=== PATIENT | female | born 1940 | race Caucasian/White ===

== ENCOUNTER 2022-03-29 17:51 | Inpatient (IN) ==
--- NOTE | 2022-03-29 17:59 | ED Triage Note ---
Date of Service March 29, 2022 History of Present Illness This patient was briefly evaluated while in triage. An abbreviated physical exam was performed. This patient is a 81-year-old Female with past medical history of hypertension, hyperlipidemia, DM who presents to the ED for evaluation of pain in left lower back and tailbone, radiates into the left hip, started 2 days ago suddenly after standing up from sitting in chair. Pain is getting worse, radiates around to the front of the abdomen. History of back surgery to remove a cyst. Having trouble walking because of pain. No numbness, tingling, weakness, bowel or bladder problems. Took Tylenol for the pain with some relief. Denies fevers, but has had some intermittent chills. No vomiting. Physical Exam CONSTITUTIONAL: No acute distress. Well appearing. RESPIRATORY: Clear to auscultation bilaterally. Equal expansion bilaterally. CARDIOVASCULAR: Regular rate and rhythm with no murmurs, rubs or gallops. Normal peripheral perfusion. GASTROINTESTINAL: Soft, nondistended, tender to palpation in the left flank and lower abdomen. MUSCULOSKELETAL: No midline tenderness to palpation over the lumbar spine or sacrum. NEUROLOGIC: Alert and oriented X 4 with normal affect. Initial orders for labs and / or imaging were placed and patient was placed in the waiting area until a bed is available. Please see further documentation for the full ED course. MDM / Impression Impression Impression: Intractable low back pain, Left buttock pain, Ambulatory dysfunction
[2022-03-29] MEDS ORDERED: ACETAMINOPHEN 500 MG TAB PO STA (18:01)
[2022-03-29 19:19] LABS: Basophils # (auto) 0.06 K/uL (0-0.2); Basophils % (auto) 0.5 %; Eosinophils # (auto) 0.13 K/uL (0-0.50); Eosinophils % (auto) 1.1 %; Hematocrit (blood only) 41.8 % (37.0-47.0); Hemoglobin 13.9 g/dl (12.0-16.0); Immature Granulocytes # (auto) 0.06 K/uL (0.01-0.20); Immature Granulocytes % (auto) 0.5 %; Lymphocytes # (auto) 1.53 K/uL (1.2-3.4); Lymphocytes % (auto) 12.7 %; Mean Corpuscular Hemoglobin 29.5 pg (25.0-34.0); Mean Corpuscular Hgb Conc 33.3 g/dL (32.0-36.0); Mean Corpuscular Volume 88.7 fL (80.0-100.0); Mean Platelet Volume 11.9 fL (9.4-12.4); Monocytes # (auto) 1.26 K/uL (0.11-0.59); Monocytes % (auto) 10.4 %; Neutrophils # (auto) 9.03 K/uL (1.40-6.50); Neutrophils % (auto) 74.8 %; Platelet Count 211 K/uL (130-400); RDW Coefficient of Variation 13.2 % (11.5-14.5); RDW Standard Deviation 43.1 fL (36.4-46.3); Red Blood Count 4.71 M/uL (4.20-5.40); White Blood Count 12.07 K/ul (4.8-10.8)
[2022-03-29] MEDS ORDERED: HYDROmorphone INJ 0.5 MG/0.5 ML SYR IV STA ×2 (19:33→21:17)
[2022-03-29] MEDS ORDERED: ONDANSETRON INJ 2 MG/ML 2 ML VIAL IV STA ×2 (19:33→21:17)
[2022-03-29] MEDS ORDERED: SODIUM CHLORIDE 0.9% 1000ML 500 ML IV ONE (19:33)
--- NOTE | 2022-03-29 19:35 | Emergency Department Note ---
Impression & Plan Intractable low back pain, Left buttock pain, Ambulatory dysfunction ED Provider Note Name: STEPHON COPE Age: 81 Sex: F Arrives Via: Walk-In Informant: Patient, Family ED Provider: Yoni Delgadillo MD Chief Complaint: Buttock pain Impression: As per impressions above Medical Decision Makin-year-old female with a history of diabetes, hypertension, hypothyroid, fluid overload, dyslipidemia arrives for evaluation of acute worsening of left lower back pain radiating into buttock for the last 48 hours. It is to the point where she can barely even ambulate. 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 On examination she does have some what appears to be a lipoma in the left buttock but it is small nontender nonfluctuant. Does not seem consistent with the amount of pain she is having or where the pain is at. She has no neurologic deficits and she has good pulses in the leg with good cap refill. Does not appear to be an arterial issue. Given the amount of pain she is in I did think it was reasonable to continue with getting the CT had already been ordered of the abdomen pelvis and lumbar spine. I did add in a hip just given that the pain it started after she had been sitting up out of a chair. Fortunately this imaging is unremarkable. Her labs are essentially unremarkable. I do not find any evidence of infectious is on exam or other concerning signs or symptoms. Patient is requiring several rounds of IV narcotics. Is also getting quite nauseous and vomiting though. I do not suspect she will do well at home given she can barely ambulate due to the pain and that the pain medications make her so nauseous. She was given some IV Reglan for management of the nausea. After discussion with family and much to the dismay of the patient I do think it is reasonable to bring her in to the hospital. She is grudgingly agreeable to it based on the fact of the pain she has been having. Hospitalist was consulted for further management. Prior Medical Record and Triage/Nursing Notes reviewed by Me External records reviewed included PDMP search which confirmed that she had tolerated Oxy IR previously or at least been prescribed Differentials:Sciatica, fracture, abscess, cellulitis, diverticulitis, intra- abdominal infection otherwise, retroperitoneal hemorrhage, renal colic, shingles amongst many other pathologies considered Vital Signs: reviewed and remarkable for no significant abnormalities Interventions: Dilaudid 0.25 mg IV, Dilaudid 0.5 mg IV, Zofran 4 mg IV x2, Reglan 5 mg IV, normal saline bolus 1 L IV Labs:Reviewed and remarkable for no significant abnormalities on review of CBC, CMP, UA, lipase Imaging:CT imaging of the abdomen, pelvis, lumbar, hip reveals no acute findings as per radiologist CT chart for full read. Consults:Reviewed with Dr. Ghosh of the [facility] service who will bring her in for further management. Plan: Disposition:Hospitalization. Condition: Good History of Present Illness:81-year-old female arrives for evaluation of left b uttock pain. Patient with a history of lipomas in that area with previous surgery removal and then them returning. Notes no significant issues with them though. Over the last 2 days though she has had severe left lower back and left pain. Worse with any movement. Better with mild rest. She cannot lay flat due to the amount of pain she is having. She states it started after she was getting out of bed. Taking Tylenol without improvement. States she has been crying for the last 2 days due to the amount of pain. Family notes she is not eating due to amount of pain. This never happened before. She is unable to ambulate. No fall, trauma, injuries. No similar pain to this in the past. No history of hip injuries or fractures. Past History:See Below Home Medications:See Below Allergies:NKDA Vitals:Blood Pressure: 152/77, Pulse 90, RR 20, T 36.4C, O2 97% on RA Physical Exam: GENERAL: Patient is very uncomfortable appearing and in moderate distress. Crying in pain EYES: No scleral icterus, unremarkable pupils. ENT: Mucous membranes moist, no nasal congestion. NECK: No masses appreciated, nomeningismus, trachea is midline. RESPIRATORY: No dyspnea. Clear to auscultation and equal bilaterally. No wheeze, no rhonchi. CARDIOVASCULAR: Regular rate and rhythm.No murmurs, rubs, gallops appreciated. GASTROINTESTINAL: Abdomen soft, non-tender, no peritonitis.Bowel sounds positive.No masses appreciated. BACK: Pain localized to lower left back and upper left buttock but without any TTP. There are several nontender lipomas noted. EXTREMITIES: Normal motion all extremities, no cyanosis, no edema. NEUROLOGIC: Alert and oriented, No focal neuro deficits SKIN: No rash, no jaundice, no diaphoresis. PSYCH: Appropriate GCS: 15 ED Course: Times/Reassessments: Patient is feeling a bit better but she is still quite uncomfortable and now she has developed nausea and dry heaves. Yoni Delgadillo MD Past Med/Surg History Medical History (Updated 03/30/22 @ 01:44 by Yoni Delgadillo MD) Diverticulitis Social History (Updated 07/02/18 @ 07:33 by Shanice Ferreira) Smoking Status: Never smoker marital status: Current Living Situation: Spouse Feels Safe at Home: Yes Allergies Allergies Allergy/AdvReac Type Severity Reaction Status Date / Time No Known Allergies Allergy Mild Verified 03/29/22 20:15 Home Meds Home Medications Medication Instructions Recorded Confirmed furosemide 20 mg tablet 20 mg PO DAILY 07/02/18 03/29/22 levothyroxine 88 mcg tablet 88 mcg PO DAILY 07/02/18 03/29/22 metoprolol succinate 25 mg 25 mg PO DAILY 07/02/18 03/29/22 tablet,extended release 24 hr omeprazole 20 mg capsule,delayed 20 mg PO DAILY PRN Acid Reflux 07/02/18 03/29/22 release Aspirin Low-Strength 81 mg PO DAILY 03/29/22 03/29/22 atorvastatin 10 mg tablet 10 mg PO DAILY 03/29/22 03/29/22 lisinopril 20 mg tablet 20 mg PO DAILY 03/29/22 03/29/22 metformin 500 mg tablet,extended 500 mg PO DAILY 03/29/22 03/29/22 release 24 hr omega [id number] oil 1,000 mg 1 cap PO DAILY 03/29/22 03/29/22 (120 mg-180 mg) capsule (Fish Oil) vitamin E 268 mg (400 unit) capsule 268 mg PO DAILY 03/29/22 03/29/22 Vitamin D3 1,000 units PO DAILY 03/30/22 03/30/22 Results & Data (ED) Vital Signs Vital Signs - 24 hr 03/29/22 17:53 03/29/22 21:00 03/29/22 23:00 Temperature 36.4 C L Temperature Source Temporal Artery Scan Pulse Rate 90 Pulse Rate [Apical] 64 66 Pulse Rhythm Regular Pulse Rhythm [Apical] Regular Regular Pulse Strength Normal Pulse Strength [Apical] Normal Normal Respiratory Rate 20 18 18 Respiratory Effort / Characteristics Non-Labored Spontaneous Non-Labored Non-Labored Respiratory Depth Normal Normal Normal Respiratory Pattern Regular Regular Regular Blood Pressure 152/77 H Blood Pressure [Right Arm] 149/70 H 150/68 H Blood Pressure Mean 102 Blood Pressure Mean [Right Arm] 96 95 Blood Pressure Position Sitting Blood Pressure Position [Right Arm] Lying Lying Pulse Oximetry 97 98 97 Oxygen Delivery Method Room Air Room Air Room Air Sepsis Recent Fever Within 48 Hours No Sepsis New/Unexplained Change in Mental Status N/A Sepsis Action Taken by Nursing No Action Required Laboratory Data 03/29/22 19:05 03/29/22 19:05 Lab Results 03/29/22 03/29/22 03/29/22 Range/Units 19: 19: 22:00 WBC 12.07 H (4.8-10.8) K/ul RBC 4.71 (4.20-5.40) M/uL Hgb 13.9 (12.0-16.0) g/dl Hct 41.8 (37.0-47.0) % MCV 88.7 (80.0-100.0) fL MCH 29.5 (25.0-34.0) pg MCHC 33.3 (32.0-36.0) g/dL RDW Std Deviation 43.1 (36.4-46.3) fL RDW Coeff of Ramses 13.2 (11.5-14.5) % Plt Count 211 (130-400) K/uL MPV 11.9 (9.4-12.4) fL Immature Gran % (Auto) 0.5 % Neut % (Auto) 74.8 % Lymph % (Auto) 12.7 % [place] % (Auto) 10.4 % Eos % (Auto) 1.1 % Baso % (Auto) 0.5 % Neut # (Auto) 9.03 H (1.40-6.50) K/uL Lymph # (Auto) 1.53 (1.2-3.4) K/uL [place] # (Auto) 1.26 H (0.11-0.59) K/uL Eos # (Auto) 0.13 (0-0.50) K/uL Baso # (Auto) 0.06 (0-0.2) K/uL Immature Gran # (Auto) 0.06 (0.01-0.20) K/uL Sodium 137 (136-145) mmol/L Potassium 4.3 (3.5-5.1) mmol/L Chloride 102 (98-107) mmol/L Carbon Dioxide 26 (21-32) mmol/L Anion Gap 9 (3-11) BUN 14 (6-23) mg/dl Creatinine 0.78 (0.6-1.2) mg/dl Est Cr Clr Drug Dosing Not Reportable Est GFR ( Amer) 83.2 ml/min Est GFR (Non-Af Amer) 71.8 ml/min BUN/Creatinine Ratio 17.9 (10-20) Glucose 237 H (70-99(Fasting)) mg/dl Calcium 9.9 (8.5-10.1) mg/dl Total Bilirubin 0.5 (0.2-1.0) mg/dl AST 14 (13-39) U/L ALT 21 (7-52) U/L Alkaline Phosphatase 62 (34-104) U/L Total Protein 7.7 (6.0-8.3) gm/dl Albumin 4.4 (3.4-5.0) gm/dl Globulin 3.3 (2.5-4.0) gm/dl Albumin/Globulin Ratio 1.3 (0.9-2) Lipase 26 (11-82) U/L Urine Color Yellow Urine Appearance Clear (Clear) Urine pH 5.0 (4.5-7.5) Ur Specific [place] > 1.045 H (1.000-1.030) Urine Protein Negative (Negative) Urine Glucose (UA) Negative (Negative) Urine Ketones Negative (Negative) Urine Blood Negative (Negative) Urine Nitrite Negative (Negative) Urine Bilirubin Negative (Negative) Urine Urobilinogen Negative (Negative) Ur Leukocyte Esterase Negative (Negative) SARS-CoV-2, RNA, NAAT (NEGATIVE) 03/29/22 Range/Units 22:35 WBC (4.8-10.8) K/ul RBC (4.20-5.40) M/uL Hgb (12.0-16.0) g/dl Hct (37.0-47.0) % MCV (80.0-100.0) fL MCH (25.0-34.0) pg MCHC (32.0-36.0) g/dL RDW Std Deviation (36.4-46.3) fL RDW Coeff of Ramses (11.5-14.5) % Plt Count (130-400) K/uL MPV (9.4-12.4) fL Immature Gran % (Auto) % Neut % (Auto) % Lymph % (Auto) % [place] % (Auto) % Eos % (Auto) % Baso % (Auto) % Neut # (Auto) (1.40-6.50) K/uL Lymph # (Auto) (1.2-3.4) K/uL [place] # (Auto) (0.11-0.59) K/uL Eos # (Auto) (0-0.50) K/uL Baso # (Auto) (0-0.2) K/uL Immature Gran # (Auto) (0.01-0.20) K/uL Sodium (136-145) mmol/L Potassium (3.5-5.1) mmol/L Chloride (98-107) mmol/L Carbon Dioxide (21-32) mmol/L Anion Gap (3-11) BUN (6-23) mg/dl Creatinine (0.6-1.2) mg/dl Est Cr Clr Drug Dosing Est GFR ( Amer) ml/min Est GFR (Non-Af Amer) ml/min BUN/Creatinine Ratio (10-20) Glucose (70-99(Fasting)) mg/dl Calcium (8.5-10.1) mg/dl Total Bilirubin (0.2-1.0) mg/dl AST (13-39) U/L ALT (7-52) U/L Alkaline Phosphatase (34-104) U/L Total Protein (6.0-8.3) gm/dl Albumin (3.4-5.0) gm/dl Globulin (2.5-4.0) gm/dl Albumin/Globulin Ratio (0.9-2) Lipase (11-82) U/L Urine Color Urine Appearance (Clear) Urine pH (4.5-7.5) Ur Specific [place] (1.000-1.030) Urine Protein (Negative) Urine Glucose (UA) (Negative) Urine Ketones (Negative) Urine Blood (Negative) Urine Nitrite (Negative) Urine Bilirubin (Negative) Urine Urobilinogen (Negative) Ur Leukocyte Esterase (Negative) SARS-CoV-2, RNA, NAAT NEGATIVE (NEGATIVE) Administered Medications Discontinued Medications Acetaminophen (Acetaminophen 500 Mg Tab) 1,000 mg PO NOW STA Stop: 03/29/22 18:02 Last Admin: 03/29/22 19:06 Dose: 1,000 mg Documented By: SKYE Hydromorphone HCl (Hydromorphone Inj 0.5 Mg/0.5 Ml Syr) 0.5 mg IV NOW STA Stop: 03/29/22 19:34 Last Admin: 03/29/22 19:52 Dose: 0.5 mg Documented By: RUFINO Hydromorphone HCl (Hydromorphone Inj 0.5 Mg/0.5 Ml Syr) 0.25 mg IV NOW STA Stop: 03/29/22 21:18 Last Admin: 03/29/22 21:22 Dose: 0.25 mg Documented By: RUFINO Sodium Chloride (Nss 1000ml) 500 mls @ 999 mls/hr IV .Q31M ONE Stop: 03/29/22 20:03 Last Infusion: 03/29/22 20:23 Dose: 0 mls/hr Documented By: Admin: 03/29/22 19:52 Dose: 999 mls/hr Documented By: RUFINO Ioversol (Optiray 350 100ml) 85 ml IV ONCE ONE Stop: 03/29/22 20:20 Last Admin: 03/29/22 20:19 Dose: 85 ml Documented By: SHANT Metoclopramide HCl (Metoclopramide Hcl Inj 5 Mg/Ml 2 Ml Vial) 5 mg IV ONE ONE Stop: 03/29/22 22:41 Last Admin: 03/29/22 22:46 Dose: 5 mg Documented By: RUFINO Ondansetron HCl (Ondansetron Inj 2 Mg/Ml 2 Ml Vial) 4 mg IV NOW STA Stop: 03/29/22 19:34 Last Admin: 03/29/22 19:52 Dose: 4 mg Documented By: RUFINO Ondansetron HCl (Ondansetron Inj 2 Mg/Ml 2 Ml Vial) 4 mg IV NOW STA Stop: 03/29/22 21:18 Last Admin: 03/29/22 21:22 Dose: 4 mg Documented By: RUFINO Imaging Data Radiologist's Impression: Abdomen/Pelvis CT 03/29/22 18:01 CT SCAN OF THE ABDOMEN AND PELVIS WITH IV CONTRAST; CT SCAN OF THE LUMBAR SPINE WITH IV CONTRAST; CT SCAN OF THE LEFT HIP WITHOUT IV CONTRAST CLINICAL HISTORY: Left flank pain. Low back pain. Left hip pain. COMPARISON STUDY: Abdominal CT dated 07/02/2018. TECHNIQUE: Unenhanced CT scan of the left hip is lumbar bony pelvis the femoral shaft. Subsequently, following the IV administration of 85 cc of Optiray 350, CT scan of the abdomen and pelvis is performed from the lung bases to the proximal femora and CT scan of the lumbar spine is performed from the lower thoracic spine to the sacrum Images for these examinations are reviewed in the axial, sagittal, and coronal planes. IV contrast was administered without complication. A dose lowering technique was utilized adhering to the principles of ALARA. CT DOSE: 898.25 mGy.cm FINDINGS: Lung bases: The heart is normal in size and without pericardial effusion. The lung bases are clear noting bibasilar scarring/atelectasis. There is a large hiatal hernia. Liver: The contrast-enhanced liver is normal in size, contour, and attenuation. There is no intrahepatic biliary ductal dilatation. The hepatic veins and portal veins are patent. Gallbladder: Unremarkable. Spleen: Normal in size and attenuation. 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 Pancreas: Moderately atrophic and grossly unremarkable. Adrenal glands: Unremarkable. Kidneys: The contrast enhanced kidneys are normal in size and without hydronephrosis. The kidneys enhance symmetrically. A 10 mm cyst is noted on the right. Renal sinus cysts are seen bilaterally. Abdominal vasculature: The abdominal aorta is normal in course and caliber noti ng moderate atherosclerotic calcification. Bowel: There is moderate colonic diverticulosis without CT evidence of acute diverticulitis. No bowel obstruction is seen. Duodenal diverticula are incidentally noted. The appendix is well-visualized and normal. Peritoneum: There is no intraperitoneal free air or abdominal ascites. Lymphadenopathy: None. Pelvic viscera: The bladder, uterus, and adnexa are normal as visualized. Skeletal structures: The skeletal structures are osteopenic. See below for dedicated discussion of the lumbar spine. The bony pelvis and proximal femora appear intact. No lytic or blastic lesions are seen. LUMBAR SPINE: Vertebral body height is maintained throughout the lumbar spine. There is no evidence of fracture or malalignment. There is minimal anterolisthesis at L4-L5. Alignment is otherwise preserved. Small anterior and lateral marginal osteophytes are seen throughout. The transverse and spinous processes are intact. There is no evidence of spondylolysis. There is moderate disc space narrowing at L5-S1. Mild disc space narrowing is seen at the remaining lumbar levels. A large posterior disc osteophyte complex the seen at L5-S1. A posterior discussion the complex is also noted at L4-L5. There is at least moderate central canal stenosis at both levels. A large right lateral disc bulge at L4-L5 contributes to neural foraminal stenosis and likely impinges the exiting right L4 nerve root. Disc disease is similar to the 07/02/2018 examination. Facet arthropathy is noted in the lower lumbar region. The pa raspinous soft tissues are within normal limits. LEFT HIP: There is no fracture involving the left hip or the left hemipelvis. There is mild degenerative change and joint space narrowing of the left hip. There is no evidence of avascular necrosis of the left femoral head. There is no CT evidence of joint effusion. There is mild generalized atrophy of the overlying musculature. IMPRESSION: 1. No acute infectious or inflammatory findings are identified in the abdomen or pelvis. 2. Colonic diverticulosis without CT evidence of acute diverticulitis. 3. No acute bony abnormality is seen involving the lumbar spine. 4. No acute bony abnormality is seen involving the left hip. 5. Lumbosacral spondylosis as above. 6. Large hiatal hernia. 7. Additional findings as above. ACT 112: Negative or not required by law. Electronically signed by: Frank Mcknight M.D. 03/29/2022 9:[address] 03/29/22 18:01 CT SCAN OF THE ABDOMEN AND PELVIS WITH IV CONTRAST; CT SCAN OF THE LUMBAR SPINE WITH IV CONTRAST; CT SCAN OF THE LEFT HIP WITHOUT IV CONTRAST CLINICAL HISTORY: Left flank pain. Low back pain. Left hip pain. COMPARISON STUDY: Abdominal CT dated 07/02/2018. TECHNIQUE: Unenhanced CT scan of the left hip is lumbar bony pelvis the femoral shaft. Subsequently, following the IV administration of 85 cc of Optiray 350, CT scan of the abdomen and pelvis is performed from the lung bases to the pro ximal femora and CT scan of the lumbar spine is performed from the lower thoracic spine to the sacrum Images for these examinations are reviewed in the axial, sagittal, and coronal planes. IV contrast was administered without complication. A dose lowering technique was utilized adhering to the principles of ALARA. CT DOSE: 898.25 mGy.cm FINDINGS: Lung bases: The heart is normal in size and without pericardial effusion. The lung bases are clear noting bibasilar scarring/atelectasis. There is a large hiatal hernia. Liver: The contrast-enhanced liver is normal in size, contour, and attenuation. There is no intrahepatic biliary ductal dilatation. The hepatic veins and portal veins are patent. Gallbladder: Unremarkable. Spleen: Normal in size and attenuation. 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 Pancreas: Moderately atrophic and grossly unremarkable. Adrenal glands: Unremarkable. Kidneys: The contrast enhanced kidneys are normal in size and without hydronephrosis. The kidneys enhance symmetrically. A 10 mm cyst is noted on the right. Renal sinus cysts are seen bilaterally. Abdominal vasculature: The abdominal aorta is normal in course and caliber noting moderate atherosclerotic calcification. Bowel: There is moderate colonic diverticulosis without CT evidence of acute diverticulitis. No bowel obstruction is seen. Duodenal diverticula are incidentally noted. The appendix is well-visualized and normal. Peritoneum: There is no intraperitoneal free air or abdominal ascites. Lymphadenopathy: None. Pelvic viscera: The bladder, uterus, and adnexa are normal as visualized. Skeletal structures: The skeletal structures are osteopenic. See below for dedicated discussion of the lumbar spine. The bony pelvis and proximal femora appear intact. No lytic or blastic lesions are seen. LUMBAR SPINE: Vertebral body height is maintained throughout the lumbar spine. There is no evidence of fracture or malalignment. There is minimal anterolisthes is at L4-L5. Alignment is otherwise preserved. Small anterior and lateral marginal osteophytes are seen throughout. The transverse and spinous processes are intact. There is no evidence of spondylolysis. There is moderate disc space narrowing at L5-S1. Mild disc space narrowing is seen at the remaining lumbar levels. A large posterior disc osteophyte complex the seen at L5-S1. A posterior discussion the complex is also noted at L4-L5. There is at least moderate central canal stenosis at both levels. A large right lateral disc bulge at L4-L5 contributes to neural foraminal stenosis and likely impinges the exiting right L4 nerve root. Disc disease is similar to the 07/02/2018 examination. Facet arthropathy is noted in the lower lumbar region. The paraspinous soft tissues are within normal limits. LEFT HIP: There is no fracture involving the left hip or the left hemipelvis. There is mild degenerative change and joint space narrowing of the left hip. There is no evidence of avascular necrosis of the left femoral head. There is no CT evidence of joint effusion. There is mild generalized atrophy of the overlying musculature. IMPRESSION: 1. No acute infectious or inflammatory findings are identified in the abdomen or pelvis. 2. Colonic diverticulosis without CT evidence of acute diverticulitis. 3. No acute bony abnormality is seen involving the lumbar spine. 4. No acute bony abnormality is seen involving the left hip. 5. Lumbosacral spondylosis as above. 6. Large hiatal hernia. 7. Additional findings as above. ACT 112: Negative or not required by law. Electronically signed by: Frank Mcknight M.D. 03/29/2022 9:[address] 03/29/22 19:35 CT SCAN OF THE ABDOMEN AND PELVIS WITH IV CONTRAST; CT SCAN OF THE LUMBAR SPINE WITH IV CONTRAST; CT SCAN OF THE LEFT HIP WITHOUT IV CONTRAST CLINICAL HISTORY: Left flank pain. Low back pain. Left hip pain. COMPARISON STUDY: Abdominal CT dated 07/02/2018. TECHNIQUE: Unenhanced CT scan of the left hip is lumbar bony pelvis the femoral shaft. Subsequently, following the IV administration of 85 cc of Optiray 350, CT scan of the abdomen and pelvis is performed from the lung bases to the proximal femora and CT scan of the lumbar spine is performed from the lower thoracic spine to the sacrum Images for these examinations are reviewed in the axial, sagittal, and coronal planes. IV contrast was administered without complication. A dose lowering technique was utilized adhering to the principles of ALARA. CT DOSE: 898.25 mGy.cm FINDINGS: Lung bases: The heart is normal in size and without pericardial effusion. The lung bases are clear noting bibasilar scarring/atelectasis. There is a large hiatal hernia. Liver: The contrast-enhanced liver is normal in size, contour, and attenuation. There is no intrahepatic biliary ductal dilatation. The hepatic veins and portal veins are patent. Gallbladder: Unremarkable. Spleen: Normal in size and attenuation. 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 Pancreas: Moderately atrophic and grossly unremarkable. Adrenal glands: Unremarkable. Kidneys: The contrast enhanced kidneys are normal in size and without hydronephrosis. The kidneys enhance symmetrically. A 10 mm cyst is noted on the right. Renal sinus cysts are seen bilaterally. Abdominal vasculature: The abdominal aorta is normal in course and caliber not ing moderate atherosclerotic calcification. Bowel: There is moderate colonic diverticulosis without CT evidence of acute diverticulitis. No bowel obstruction is seen. Duodenal diverticula are incidentally noted. The appendix is well-visualized and normal. Peritoneum: There is no intraperitoneal free air or abdominal ascites. Lymphadenopathy: None. Pelvic viscera: The bladder, uterus, and adnexa are normal as visualized. Skeletal structures: The skeletal structures are osteopenic. See below for dedicated discussion of the lumbar spine. The bony pelvis and proximal femora appear intact. No lytic or blastic lesions are seen. LUMBAR SPINE: Vertebral body height is maintained throughout the lumbar spine. There is no evidence of fracture or malalignment. There is minimal anterolisthesis at L4-L5. Alignment is otherwise preserved. Small anterior and lateral marginal osteophytes are seen throughout. The transverse and spinous processes are intact. There is no evidence of spondylolysis. There is moderate disc space narrowing at L5-S1. Mild disc space narrowing is seen at the remaining lumbar levels. A large posterior disc osteophyte complex the seen at L5-S1. A posterior discussion the complex is also noted at L4-L5. There is at least moderate central canal stenosis at both levels. A large right lateral disc bulge at L4-L5 contributes to neural foraminal stenosis and likely impinges the exiting right L4 nerve root. Disc disease is similar to the 07/02/2018 examination. Facet arthropathy is noted in the lower lumbar region. The p araspinous soft tissues are within normal limits. LEFT HIP: There is no fracture involving the left hip or the left hemipelvis. There is mild degenerative change and joint space narrowing of the left hip. There is no evidence of avascular necrosis of the left femoral head. There is no CT evidence of joint effusion. There is mild generalized atrophy of the overlying musculature. IMPRESSION: 1. No acute infectious or inflammatory findings are identified in the abdomen or pelvis. 2. Colonic diverticulosis without CT evidence of acute diverticulitis. 3. No acute bony abnormality is seen involving the lumbar spine. 4. No acute bony abnormality is seen involving the left hip. 5. Lumbosacral spondylosis as above. 6. Large hiatal hernia. 7. Additional findings as above. ACT 112: Negative or not required by law. Electronically signed by: Frank Mcknight M.D. 03/29/2022 9:14 PM Discharge Plan Visit Data Chief Complaint: Pain (Generalized) Stated Complaint: PAIN IN TAILBONE ED Provider: Yoni Delgadillo Discharge Problem: Intractable low back pain, Left buttock pain, Ambulatory dysfunction Patient Disposition: Admitted As Inpatient Discharge Instructions Interventions: ED Discharge Assessment Last Done: 03/30/22 01:42
[2022-03-29 19:41] LABS: Alanine Aminotransferase 21 U/L (7-52); Albumin Globulin Ratio 1.3 (0.9-2); Albumin Level 4.4 gm/dl (3.4-5.0); Alkaline Phosphatase 62 U/L (34-104); Anion Gap 9 (3-11); Aspartate Aminotransferase 14 U/L (13-39); BUN Creatinine Ratio 17.9 (10-20); Bilirubin,Total 0.5 mg/dl (0.2-1.0); Blood Urea Nitrogen 14 mg/dl (6-23); Calcium 9.9 mg/dl (8.5-10.1); Carbon Dioxide 26 mmol/L (21-32); Chloride 102 mmol/L (98-107); Est GFR (African American) 83.2 ml/min; Est GFR (Non-African American) 71.8 ml/min; Globulin 3.3 gm/dl (2.5-4.0); Glucose 237 mg/dl (70-99(Fasting)); Lipase 26 U/L (11-82); Potassium 4.3 mmol/L (3.5-5.1); Sodium 137 mmol/L (136-145); Total Protein 7.7 gm/dl (6.0-8.3)
[2022-03-29] MEDS ORDERED: OPTIRAY 350 100ml IV ONE (20:19)
--- NOTE | 2022-03-29 21:17 | CT Scan Report ---
CT SCAN OF THE ABDOMEN AND PELVIS WITH IV CONTRAST; CT SCAN OF THE LUMBAR SPINE WITH IV CONTRAST; CT SCAN OF THE LEFT HIP WITHOUT IV CONTRAST CLINICAL HISTORY: Left flank pain. Low back pain. Left hip pain. COMPARISON STUDY: Abdominal CT dated 07/02/2018. TECHNIQUE: Unenhanced CT scan of the left hip is lumbar bony pelvis the femoral shaft. Subsequently, following the IV administration of 85 cc of Optiray 350, CT scan of the abdomen and pelvis is perfor med from the lung bases to the proximal femora and CT scan of the lumbar spine is performed from the lower thoracic spine to the sacrum Images for these examinations are reviewed in the axial, sagittal , and coronal planes. IV contrast was administered without complication. A dose lowering technique wa s utilized adhering to the principles of ALARA. CT DOSE: 898.25 mGy.cm FINDINGS: Lung bases: The heart is normal in size and without pericardial effusion. The lung bases are clear no ting bibasilar scarring/atelectasis. There is a large hiatal hernia. Liver: The contrast-enhanced liver is normal in size, contour, and attenuation. There is no intrahepa tic biliary ductal dilatation. The hepatic veins and portal veins are patent. Gallbladder: Unremarkable. Spleen: Normal in size and attenuation. There is an 11 mm peripherally calcified splenic artery aneur ysm. Pancreas: Moderately atrophic and grossly unremarkable. Adrenal glands: Unremarkable. Kidneys: The contrast enhanced kidneys are normal in size and without hydronephrosis. The kidneys enh ance symmetrically. A 10 mm cyst is noted on the right. Renal sinus cysts are seen bilaterally. Abdominal vasculature: The abdominal aorta is normal in course and caliber noting moderate atheroscle rotic calcification. Bowel: There is moderate colonic diverticulosis without CT evidence of acute diverticulitis. No bowel obstruction is seen. Duodenal diverticula are incidentally noted. The appendix is well-visualized a nd normal. Peritoneum: There is no intraperitoneal free air or abdominal ascites. Lymphadenopathy: None. Pelvic viscera: The bladder, uterus, and adnexa are normal as visualized. Skeletal structures: The skeletal structures are osteopenic. See below for dedicated discussion of th e lumbar spine. The bony pelvis and proximal femora appear intact. No lytic or blastic lesions are se en. LUMBAR SPINE: Vertebral body height is maintained throughout the lumbar spine. There is no evidence o f fracture or malalignment. There is minimal anterolisthesis at L4-L5. Alignment is otherwise preserv ed. Small anterior and lateral marginal osteophytes are seen throughout. The transverse and spinous p rocesses are intact. There is no evidence of spondylolysis. There is moderate disc space narrowing at L5-S1. Mild disc space narrowing is seen at the remaining lumbar levels. A large posterior disc oste ophyte complex the seen at L5-S1. A posterior discussion the complex is also noted at L4-L5. There is at least moderate central canal stenosis at both levels. A large right lateral disc bulge at L4-L5 c ontributes to neural foraminal stenosis and likely impinges the exiting right L4 nerve root. Disc dis ease is similar to the 07/02/2018 examination. Facet arthropathy is noted in the lower lumbar region. T he paraspinous soft tissues are within normal limits. LEFT HIP: There is no fracture involving the left hip or the left hemipelvis. There is mild degenerat yvette change and joint space narrowing of the left hip. There is no evidence of avascular necrosis of t he left femoral head. There is no CT evidence of joint effusion. There is mild generalized atrophy of the overlying musculature. IMPRESSION: 1. No acute infectious or inflammatory findings are identified in the abdomen or pelvis. 2. Colonic diverticulosis without CT evidence of acute diverticulitis. 3. No acute bony abnormality is seen involving the lumbar spine. 4. No acute bony abnormality is seen involving the left hip. 5. Lumbosacral spondylosis as above. 6. Large hiatal hernia. 7. Additional findings as above. ACT 112: Negative or not required by law. Electronically signed by: Frank Mcknight M.D. 03/29/2022 9:14 PM
[2022-03-29 22:11] LABS: Appearance Urine Clear (Clear); Bilirubin Urine Negative (Negative); Blood Urine Negative (Negative); Color Urine Yellow; Glucose Urine UA Negative (Negative); Ketones Urine Negative (Negative); Leukocyte Esterase Urine Negative (Negative); Nitrite Urine Negative (Negative); Protein Urine Negative (Negative); Specific Gravity Urine > 1.045 (1.000-1.030); Urobilinogen Urine Negative (Negative)
[2022-03-29] MEDS ORDERED: METOCLOPRAMIDE HCL INJ 5 MG/ML 2 ML VIAL IV ONE (22:40)
[2022-03-30] MEDS ORDERED: CARBOHYDRATES FOR HYPOGLYCEMIA PO PRN (01:38)
[2022-03-30] MEDS ORDERED: GLUCOSE 10 TAB/TUBE PO PRN (01:38)
[2022-03-30] MEDS ORDERED: GLUCAGON FOR INJ 1 MG VIAL SQ PRN (01:38)
[2022-03-30] MEDS ORDERED: GLUCOSE 40% GEL 15 GM TUBE PO PRN (01:38)
[2022-03-30] MEDS ORDERED: HYDROmorphone INJ 0.5 MG/0.5 ML SYR IV PRN (01:38)
[2022-03-30] MEDS ORDERED: DEXTROSE 50% 50 ML SYRINGE IV PRN (01:38)
[2022-03-30] MEDS ORDERED: PANTOprazole 40 MG TAB PO PRN (02:04)
--- NOTE | 2022-03-30 03:25 | History and Physical Report ---
DATE OF ADMISSION: 03/29/2022. CHIEF COMPLAINT: Severe low back pain. 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 Presents with severe left buttock pain, started since last Friday, and she could not put weight on the left leg. While ambulating the pain shoots up and she is having ambulatory dysfunction and it is not getting better, that is the reason she came here. Denies any fever or chills. Normal bowel and bladder movements. No loss of sensation in the lower extremities. Denies any chest pain, no shortness of breath, no cough, no fevers, no abdominal pain. Today, she was feeling nauseous and dry heaves. Otherwise, her appetite is okay. Denies any headache. No blurred visions, no earache, no runny nose, no sore throat, no cough. Hemodynamically stable. ALLERGIES: No known drug allergies. PAST MEDICAL HISTORY: As mentioned above. PAST SURGICAL HISTORY: Excision of the subcutaneous tumor on the left back, colonoscopy, parathyroidectomy, ligation of the oviducts, cataracts surgeries. MEDICATIONS: The patient is on aspirin 81 mg p.o. daily, atorvastatin 10 mg p.o. daily, Lasix 20 mg p.o. daily, levothyroxine 88 mcg p.o. daily, lisinopril 20 mg p.o. daily, metformin 500 mg p.o. daily, metoprolol succinate 25 mg p.o. daily, omega fish oil 1 capsule daily, omeprazole 20 mg p.o. daily p.r.n., vitamin D 1000 units p.o. daily, vitamin E daily, cyanocobalamin 1000 mcg p.o. daily. FAMILY HISTORY: Significant for father has diabetes, heart disorder; sister has colon cancer; brother has heart disease; sister has liver disease; sister has lung cancer; mother has osteoporosis. SOCIAL HISTORY: . Quit smoking in 1989. Alcohol, occasional glass of wine. No drug use. REVIEW OF SYSTEMS: As per HPI. Rest of the review of systems is negative. PHYSICAL EXAMINATION: GENERAL: The patient is of moderate build, not in acute distress. VITAL SIGNS: Temperature 36.4, pulse 66, respiratory rate 18, blood pressure 150/68, oxygen 97% on room air. HEENT: Pupils equal, round and reactive to light. Oral mucosa moist. NECK: No JVD, no neck masses. CARDIOVASCULAR: S1 and S2 heard. Regular rate and rhythm. No murmur, no gallop. RESPIRATORY SYSTEM: Normal AP diameter. No accessory muscle use. No wheezing or crackles. ABDOMEN: Soft, bowel sounds present, nontender, no distention. CENTRAL NERVOUS SYSTEM: Alert and oriented. Speech is clear. No facial droop. Obeys simple commands. Moves extremities. MUSCULOSKELETAL: Has tenderness in the left buttock region and left straight leg test is positive. EXTREMITIES: No edema, no erythema. LABORATORY DATA: WBC 12, hemoglobin 13.9, hematocrit 41.8, platelets 211. Sodium 137, potassium 4.3, chloride 102, bicarbonate 26, BUN 14, creatinine 0.7, serum glucose 237, calcium 9.9, total bilirubin 0.5, AST 14, ALT 21, alkaline phosphatase 62, lipase 26. Urinalysis negative. SARS-CoV-2 rapid test negative. IMAGING DATA: Hip CT, CT scan of the abdomen and pelvis with IV contrast, CT scan of the lumbar spine with IV contrast, CT scan of the left hip without IV contrast, no acute infectious inflammatory findings. Colonic diverticulosis without CT evidence of acute diverticulitis. No acute bony abnormality seen involving the lumbar spine. No acute bony abnormality seen involving the left hip. Lumbosacral spondylosis as above, large hiatal hernia. EKG: Normal sinus rhythm at a rate of 77, left axis deviation. QTc 436. ASSESSMENT AND PLAN: This is an 81-year-old female who presents with left low back pain and ambulatory dysfunction. 1. Left low back pain and ambulatory dysfunction: Pain involving the left buttock region. Left straight leg test positive. The patient had lipoma that was taken out in the past, and the patient thinks it is coming back. CAT scan was okay. Will get an MRI scan. Pain control with IV Dilaudid p.r.n. for severe pain and oxycodone p.r.n. for moderate pain. When stable, can do PT/OT. Follow the imaging studies. Monitor in the medical floor. 2. History of coronary artery disease: On aspirin, statin, and beta khalida. 3. History of hypertension: On lisinopril, Lasix. 4. History of hyperlipidemia: On statin. 5. History of hypothyroidism: On Synthroid. 6. History of diabetes: On metformin, which will be held. Will place on insulin sliding scale. Follow the blood sugars. 7. Deep venous thrombosis prophylaxis: Lovenox. DISPOSITION: Closely monitor in the medical floor. PT/OT prior to discharge. Social service to help with discharge planning. Level 1 full code. Job ID: [id number] [facility]
[2022-03-30] MEDS: oxyCODONE HCL IR 5 MG TAB (IMMEDIATE RELEASE) PO PRN ×2 (05:53→12:32)
[2022-03-30] MEDS: LEVOTHYROXINE SODIUM 88 MCG TABLET PO SCH (05:53)
[2022-03-30 07:23] LABS: Basophils # (auto) 0.04 K/uL (0-0.2); Basophils % (auto) 0.5 %; Eosinophils # (auto) 0.03 K/uL (0-0.50); Eosinophils % (auto) 0.4 %; Hematocrit (blood only) 37.1 % (37.0-47.0); Hemoglobin 12.7 g/dl (12.0-16.0); Immature Granulocytes # (auto) 0.04 K/uL (0.01-0.20); Immature Granulocytes % (auto) 0.5 %; Lymphocytes % (auto) 18.1 %; Mean Corpuscular Hgb Conc 34.2 g/dL (32.0-36.0); Mean Corpuscular Volume 87.7 fL (80.0-100.0); Monocytes # (auto) 0.93 K/uL (0.11-0.59); Monocytes % (auto) 11.2 %; Neutrophils # (auto) 5.75 K/uL (1.40-6.50); Neutrophils % (auto) 69.3 %; Platelet Count 203 K/uL (130-400); RDW Coefficient of Variation 13.2 % (11.5-14.5); RDW Standard Deviation 42.3 fL (36.4-46.3); Red Blood Count 4.23 M/uL (4.20-5.40); White Blood Count 8.29 K/ul (4.8-10.8)
[2022-03-30 07:58] LABS: Anion Gap 4 (3-11); Blood Urea Nitrogen 13 mg/dl (6-23); Calcium 9.6 mg/dl (8.5-10.1); Carbon Dioxide 27 mmol/L (21-32); Chloride 108 mmol/L (98-107); Creatinine Clr Calc Pharmacy 71.9 ml/min; Est GFR (African American) 97.2 ml/min; Est GFR (Non-African American) 83.9 ml/min; Glucose 134 mg/dl (70-99(Fasting)); Magnesium 1.8 mg/dl (1.7-2.4); Sodium 139 mmol/L (136-145)
[2022-03-30 09:25] LABS: Estimated Average Glucose 148 mg/dl; Hemoglobin A1C 6.8 % (4.5-5.6)
[2022-03-30] MEDS ORDERED: GADOBUTROL 30ML VIAL IV ONE (09:26)
--- NOTE | 2022-03-30 09:58 | Magnetic Resonance Report ---
MR pelvis wo/w con HISTORY: 81 years-old Female pain in left buttock region acute severe pain of the low back and left buttock COMPARISON: MRI lumbar spine of same day, CT lumbar spine and left hip studies 03/29/2022 TECHNIQUE: Multiplanar multisequence MRI of the pelvis was obtained both with and without the use of 8 cc Gadavist FINDINGS: Continuous Improvement Engineer localizer images demonstrate no gross extra pelvic abnormality. The imaged intrapelvic structur es are unremarkable. Mild to moderate osteoarthritis of the hips. No acute fracture, dislocation, piyush scular necrosis or significant marrow edema. Nonspecific subcutaneous edema of the proximal thighs. N o intramuscular fluid collection or retroperitoneal hematoma identified. Trace bilateral greater troc hanteric bursitis. Decompressed urinary bladder. Nonspecific trace free pelvic fluid. IMPRESSION: 1. No acute fracture or marrow edema. 2. Trace bilateral greater trochanteric bursitis. 3. Please refer to the MRI lumbar spine study of same day for discussion of the discogenic degenerati on. ACT 112: Negative or not required by law. The above report was generated using voice recognition software. It may contain grammatical, syntax o r spelling errors. Electronically signed by: Calvin Lovell M.D. 03/30/2022 9:57 AM
[2022-03-30] MEDS: ASPIRIN 81 MG ECTAB PO SCH (10:05)
[2022-03-30] MEDS: ATORVASTATIN 10 MG TAB PO SCH (10:06)
[2022-03-30] MEDS: FUROSEMIDE 20 MG TAB PO SCH (10:06)
[2022-03-30] MEDS: lisinopril 20 MG TAB PO SCH (10:06)
[2022-03-30] MEDS: CHOLECALCIFEROL 1,000 UNITS 25 MCG TAB PO SCH (10:07)
[2022-03-30] MEDS: ENOXAPARIN INJ 40 MG/0.4 ML SYR SQ SCH (10:07)
[2022-03-30] MEDS: METOPROLOL SUCC 25MG EXT REL TAB PO SCH (10:07)
[2022-03-30] MEDS: INSULIN ASPART PER UNIT SC SCH ×4 (10:11→20:46)
--- NOTE | 2022-03-30 11:04 | Magnetic Resonance Report ---
MR lumbar spine wo/w con CLINICAL HISTORY: 81 years-old Female with severe low back pain. Acute severe low back pain without reported trauma COMPARISON: MRI pelvis of same day, CT lumbar spine 03/29/2022 TECHNIQUE: Multiplanar, multi sequence MRI of the lumbar spine was performed both with and without th e use of 8 mL Gadavist FINDINGS: Hydrate Control Tender localizer images demonstrate no gross extraspinal abnormality. Severe multilevel facet arthrosi s with mild adjacent enhancement, likely reactive. Motion degraded exam. Mild nonspecific enhancement within the left paraspinal musculature at L4-L5. No acute fracture, subluxation, endplate erosion or significant marrow edema. Nonspecific trace free pelvic fluid. Conus medullaris terminates at T12-L1 . Normal signal within the thoracic spinal cord. Unremarkable cauda equina. Motion degradation limits evaluation of the central canal and neural foramina. T12-L1: Ligamentum flavum thickening with moderate facet arthrosis. No central canal or neural pedro inal stenosis. L1-L2: Mild intervertebral disc space narrowing with disc desiccation, ligamentum flavum thickening and moderate facet arthrosis. No central canal or neural foraminal stenosis. L2-L3: Disc desiccation with mild spondylitic spurring, ligamentum flavum thickening and moderate fa cet arthrosis. Tiny posterior annular disc bulge results in mild left foraminal stenosis. The central canal and right neural foramen are patent. L3-L4: Disc desiccation with spondylitic spurring and tiny circumferential annular disc bulge, eccen tric to the left. Ligamentum flavum thickening with severe facet arthrosis. Central canal is patent. Mild right with [id number] left neural foraminal narrowing. L4-L5: Mild intervertebral disc space narrowing. Small circumferential annular disc bulge with mild posterior disc space uncovering. 4 mm anterolisthesis. Spondylitic spurring with ligamentum flavum th ickening and severe facet arthrosis. Severe central canal stenosis, AP dimension of the thecal sac me asuring 5 mm. There is at least moderate narrowing of the lateral recesses. Mild to moderate left wit h moderate right neural foraminal narrowing. L5-S1: Mild to moderate disc space narrowing. Spondylitic spurring with circumferential annular disc bulge. Posterior annular fissure with 1.7 x 0.7 cm central/right paracentral disc protrusion abuttin g the bilateral S1 nerve roots with mild displacement of the right S1 nerve root. Ligament flavum thi ckening with severe facet arthrosis. Moderate central canal stenosis, AP dimension of the thecal sac measuring 7 mm. There is at least moderate narrowing of the lateral recesses. Mild right with moderat e left neural foraminal narrowing. IMPRESSION: 1. Motion degraded exam without acute fracture or abnormal osseous enhancement. 2. Annular fissure with disc protrusion at L5-S1 contributes to cause moderate central canal stenosis with mild right and moderate left neural foraminal stenosis. 3. Severe central canal stenosis at L4-L5. 4. Edema and enhancement of the paraspinal musculature on the left at L4-L5 is likely reactive second dell to the associated adjacent facet arthrosis. A muscle strain could appear similarly. ACT 112: Negative or not required by law. The above report was generated using voice recognition software. It may contain grammatical, syntax o r spelling errors. Dictated: 03/30/2022 9:57 AM Transcribed: 03/30/2022 10:58 AM Saulo [id number] [email or web address] Electronically signed by: Calvin Lovell M.D. 03/30/2022 11:01 AM
[2022-03-30] MEDS ORDERED: ACETAMINOPHEN 500 MG TAB PO PRN (11:55)
--- NOTE | 2022-03-30 13:11 | Electrocardiogram Report ---
Test Reason : Blood Pressure : / mmHG Vent. Rate : 077 BPM Atrial Rate : 077 BPM P-R Int : 132 ms QRS Dur : 116 ms QT Int : 386 ms P-R-T Axes : 056 -40 102 degrees QTc Int : 436 ms Normal sinus rhythm Left axis deviation Left bundle branch block Inferior infarct , age undetermined Abnormal ECG When compared with ECG of 02-JUL-2018 08:14, Inferior infarct is now Present Confirmed by Ludwig Willis ([id number]) on 03/30/2022 1:11:24 PM Referred By: REFERRED SELF Confirmed By:Ludwig Willis
[2022-03-30] MEDS: LIDOCAINE 5% 1 PATCH TD SCH (13:49)
[2022-03-30] MEDS: DICLOFENAC SOD 1% GEL 100 GM TUBE EXT SCH ×2 (13:49→18:09)
--- NOTE | 2022-03-30 14:53 | Hospitalist Progress Note ---
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 Admitting labs WNL, patient afebrile. Admitting CTAP/lumbar spine CT/hip CT: No acute infectious or inflammatory findings/no acute bony abnormality in the lumbar spine or left hip. Large hiatal hernia present. Admitting lumbar spine MRI: Moderate to severe central canal stenosis at lumbar sacral region. Edema and enhancement of the paraspinal musculature on the left L4-L5 is likely reactive secondary to the associated adjacent facet arthrosis versus muscle strain. Pain management, Voltaren gel and lidocaine patch. Reached out to orthospine, possible evaluation tomorrow. Reconsult in a.m. Continue with pain management, PT/OT. Voltaren gel for b/l trochanteric bursitis x mild. Other chronic medical conditions: CAD: Continue aspirin/statin/beta-khalida HTN: Continue lisinopril/Lasix HLD: Continue statin Hypothyroidism: Continue Synthroid DM: A1c 6.8 this admission, on metformin at home. We will continue with sliding scale while in the hospital. DVT prophylaxis: Lovenox Disposition: Likely orthospine eval tomorrow, PT/OT [facility] [place] with PT/OT recommendation. Likely will need orthospine follow-up as outpatient. Admission and Anticipated Discharge Date Admission Date: March 29, 2022 Subjective Patient seen and examined at bedside as a follow-up of left low back pain and ambulatory dysfunction. Patient was lying in bed, on room air, NAD, reports ongoing lower back pain, reports no fever or cough or chills in the last 1 week, reports no loss of control of bowel or bladder function, reports no radicular pain to lower extremities and no numbness or tingling anywhere in the body. 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 Physical Exam Physical Exam: GENERAL: Alert and oriented x3. NAD, on RA. HEENT: No pallor, no icterus. Pupils equal, round and reactive to light. Oral mucosa moist. NECK: No JVD, no neck masses. HEART: S1 and S2 heard. Regular rate and rhythm. No murmur, no gallop. RESPIRATORY SYSTEM: Normal AP diameter. No accessory muscle use. No wheezing, no crackles. ABDOMEN: Soft, bowel sounds present, nontender, no distention. CENTRAL NERVOUS SYSTEM: No facial droop. Speech is clear. Obeys simple commands. Moves extremities. EXTREMITIES: 1+ ble edema, no erythema seen. minimal tender left buttock; SLRT equivocal. Results & Data Results & Data ([facility]) Vital Signs (Past 12 Hours) Vital Signs Temp Pulse Resp BP Pulse Ox O2 Del Method 03/30/22 07:34 36.6 C 68 17 122/68 96 Room Air
[2022-03-31] MEDS: DICLOFENAC SOD 1% GEL 100 GM TUBE EXT SCH ×3 (01:01→11:11)
[2022-03-31] MEDS: LEVOTHYROXINE SODIUM 88 MCG TABLET PO SCH (06:35)
[2022-03-31] MEDS ORDERED: DOCUSATE SODIUM 100 MG CAP PO PRN (07:51)
[2022-03-31] MEDS: ATORVASTATIN 10 MG TAB PO SCH (08:23)
[2022-03-31] MEDS: LIDOCAINE 5% 1 PATCH TD SCH (08:23)
[2022-03-31] MEDS: METOPROLOL SUCC 25MG EXT REL TAB PO SCH (08:23)
[2022-03-31] MEDS: FUROSEMIDE 20 MG TAB PO SCH (08:24)
[2022-03-31] MEDS: CHOLECALCIFEROL 1,000 UNITS 25 MCG TAB PO SCH (08:24)
[2022-03-31] MEDS: ENOXAPARIN INJ 40 MG/0.4 ML SYR SQ SCH (08:24)
[2022-03-31] MEDS: lisinopril 20 MG TAB PO SCH (08:24)
[2022-03-31] MEDS: ASPIRIN 81 MG ECTAB PO SCH (08:24)
[2022-03-31] MEDS: INSULIN ASPART PER UNIT SC SCH ×2 (08:58→12:36)
--- NOTE | 2022-03-31 10:46 | Discharge Summary ---
Date of Service March 31, 2022 Admission HPI Per Admitting Provider CHIEF COMPLAINT: Severe low back pain. 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 Presents with severe left buttock pain, started since last Friday, and she could not put weight on the left leg. While ambulating the pain shoots up and she is having ambulatory dysfunction and it is not getting better, that is the reason she came here. Denies any fever or chills. Normal bowel and bladder movements. No loss of sensation in the lower extremities. Denies any chest pain, no shortness of breath, no cough, no fevers, no abdominal pain. Today, she was feeling nauseous and dry heaves. Otherwise, her appetite is okay. Denies any headache. No blurred visions, no earache, no runny nose, no sore throat, no cough. Hemodynamically stable. ALLERGIES: No known drug allergies. PAST MEDICAL HISTORY: As mentioned above. PAST SURGICAL HISTORY: Excision of the subcutaneous tumor on the left back, colonoscopy, parathyroidectomy, ligation of the oviducts, cataracts surgeries. MEDICATIONS: The patient is on aspirin 81 mg p.o. daily, atorvastatin 10 mg p.o . daily, Lasix 20 mg p.o. daily, levothyroxine 88 mcg p.o. daily, lisinopril 20 mg p.o. daily, metformin 500 mg p.o. daily, metoprolol succinate 25 mg p.o. daily, omega fish oil 1 capsule daily, omeprazole 20 mg p.o. daily p.r.n., vitamin D 1000 units p.o. daily, vitamin E daily, cyanocobalamin 1000 mcg p.o. daily. FAMILY HISTORY: Significant for father has diabetes, heart disorder; sister has colon cancer; brother has heart disease; sister has liver disease; sister has lung cancer; mother has osteoporosis. SOCIAL HISTORY: . Quit smoking in 1989. Alcohol, occasional glass of wine. No drug use. REVIEW OF SYSTEMS: As per HPI. Rest of the review of systems is negative. Admission Exam Per Admitting Provider GENERAL: The patient is of moderate build, not in acute distress. VITAL SIGNS: Temperature 36.4, pulse 66, respiratory rate 18, blood pressure 150/68, oxygen 97% on room air. HEENT: Pupils equal, round and reactive to light. Oral mucosa moist. NECK: No JVD, no neck masses. CARDIOVASCULAR: S1 and S2 heard. Regular rate and rhythm. No murmur, no gallop. RESPIRATORY SYSTEM: Normal AP diameter. No accessory muscle use. No wheezing or crackles. ABDOMEN: Soft, bowel sounds present, nontender, no distention. CENTRAL NERVOUS SYSTEM: Alert and oriented. Speech is clear. No facial d manuel. Obeys simple commands. Moves extremities. MUSCULOSKELETAL: Has tenderness in the left buttock region and left straight leg test is positive. EXTREMITIES: No edema, no erythema. 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 NAD, on RA. HEENT: No pallor, no icterus. Pupils equal, round and reactive to light. Oral mucosa moist. NECK: No JVD, no neck masses. HEART: S1 and S2 heard. Regular rate and rhythm. No murmur, no gallop. RESPIRATORY SYSTEM: Normal AP diameter. No accessory muscle use. No wheezing, no crackles. ABDOMEN: Soft, bowel sounds present, nontender, no distention. CENTRAL NERVOUS SYSTEM: No facial droop. Speech is clear. Obeys simple commands. Moves extremities. EXTREMITIES: trace/1+ ble edema, no erythema seen. minimal tender left buttock - improving better. Discharge Data Allergies Allergy/AdvReac Type Severity Reaction Status Date / Time No Known Allergies Allergy Mild Verified 03/29/22 20:15 Consultations 03/29/22 22:42 ED Decision to Admit Stat 03/31/22 07:52 Consult Orthopedic Surgery Routine Ordered Studies 03/29/22 18:01 CT abd pelvis IV con only Stat CT lumbar spine w con Stat 03/29/22 19:35 CT hip LT wo con Stat 03/30/22 01:38 MR lumbar spine wo/w con Routine MRI Pelvis [MR pelvis wo/w con] Routine Hospital Course (1) Left buttock pain: Plan 81-year-old lady with PMH of T2DM, HLD, hyperparathyroidism, hypothyroidism, HTN, CAD on medical management, GERD, vitamin B12 deficiency, lumbar degenerative disc disease, age-related osteoporosis, history of lipomas in the left buttock region status post surgery presented to the ED 2/3 with left buttock pain. She was managed for the following: Left low back pain Ambulatory dysfunction Patient reports on and off left low back pain, worsening since last 2 to 3 days [employer]. Admitting labs WNL, patient afebrile. Admitting CTAP/lumbar spine CT/hip CT: No acute infectious or inflammatory findings/no acute bony abnormality in the lumbar spine or left hip. Large hiatal hernia present. Admitting lumbar spine MRI: Moderate to severe central canal stenosis at lumbar sacral region. Edema and enhancement of the paraspinal musculature on the left L4-L5 is likely reactive secondary to the associated adjacent facet arthrosis versus muscle strain. Pain management w/ Voltaren gel and lidocaine patch. Pt reports improving pain w/ diclo gel and feels better; and is moving around ok per her Pt would like to go home today, will need f/u w/ pcp in a week time. Pt to continue using voltaren gel over lower back and b/l hip. Pt might need orthospine eval on DC if w/ consistent pain/worsening pain. Pt made aware. Other chronic medical conditions: CAD: Continue aspirin/statin/beta-khalida HTN: Continue lisinopril/Lasix HLD: Continue statin Hypothyroidism: Continue Synthroid DM: A1c 6.8 this admission, on metformin at home. We will continue with sliding scale while in the hospital. DVT prophylaxis: Lovenox Patient being discharged to home with following instruction at the point of discharge: Follow-up with your primary care physician within a week time and likely you will need labs CBC/CMP/magnesium/phosphorus. Since your pain started improving significantly with diclofenac gel/heat compression/lidocaine patch improving your ambulation; recommend to continue with diclofenac gel/heat compression. For your moderate pain you can use o [id number] 4% lidocaine patch. Also you can use [id number] Tylenol for mild pain. You can continue your regular daily activities. Avoid lower back strain by avoiding bending/heavy exercises. Because of your lumbar central canal stenosis, recommend to establish and follow-up with orthospine doctor as an outpatient in 1 to 2 months time or if you have worsening pain. You can coordinate with your PCP office for referral to orthospine doctor. Take your medications as prescribed. Home Health Attestation I certify that this patient is under my care and that I, or a physicians assistant professor of education working with me, had a face to-face encounter that meets the home health xcer-ol-qrov encounter requirements with this patient. The encounter with the patient was in whole, or in part, for the following medical condition, which is the primary reason for home health care (list medical condition): I certify that, based on my findings, the following services are medically necessary home health services: My clinical findings support the need for the above services because: Further, I certify that my clinical findings support that this patient is homebound (i.e. absences from home require considerable and taxing effort and are for medical reasons or sikhism services or infrequently or of short duration when for other reasons) because: Certification for Home Health Services: Based on the above findings, I certify that this patient is confined to the home and needs intermittent residential care, physical therapy and/or speech therapy or continues to need occupational therapy. The patient is under my care, and I have initiated the establishment of the plan of care. This patient will be followed by a physician who will periodically review the plan of care. 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 Since your pain started improving significantly with diclofenac gel/heat compression/lidocaine patch improving your ambulation; recommend to continue with diclofenac gel/heat compression. For your moderate pain you can use [id number]-[id number] 4% lidocaine patch. Also you can use zgap-[id number]-[id number] Tylenol for mild pain. You can continue your regular daily activities. Avoid lower back strain by avoiding bending/heavy exercises. Because of your lumbar central canal stenosis, recommend to establish and follow-up with orthospine doctor as an outpatient in 1 to 2 months time or if you have worsening pain. You can coordinate with your PCP office for referral to orthospine doctor. Take your medications as prescribed. Pending Studies at Discharge: No Stand-Alone Forms: My [facility], Smoking Cessation Medications and DC Order Prescriptions: New diclofenac sodium [Voltaren Arthritis Pain] 1 % Gel 4 g EXT Q6H Qty: 100 2RF Rx Instructions: apply locally over left lower upto 4 times a day. Continued levothyroxine 88 mcg tablet 88 mcg PO DAILY omeprazole 20 mg capsule,delayed release(DR/EC) 20 mg PO DAILY PRN (Reason: Acid Reflux) furosemide 20 mg tablet 20 mg PO DAILY metoprolol succinate 25 mg tablet extended release 24 hr 25 mg PO DAILY atorvastatin 10 mg tablet 10 mg PO DAILY metformin 500 mg tablet extended release 24 hr 500 mg PO DAILY vitamin E 268 mg (400 unit) Capsule 268 mg PO DAILY omega 5-ltj-reo-fish oil [Fish Oil] 1,000 mg (120 mg-180 mg) Capsule 1 cap PO DAILY Aspirin Low-Strength 81 mg 81 mg PO DAILY lisinopril 20 mg tablet 20 mg PO DAILY Vitamin D3 1,000 units 1,000 units PO DAILY Discharge Orders: Discharge Order (Routine); Ordered 03/31/22 Ordered By: Bonnie Jacobs/Other Patient Handouts: Managing Type 2 Diabetes Admission Data Admit Date/Time: 03/29/22 23:59 Attending Provider: Bonnie Forman Admit Provider: Amador Ghosh Primary Care Provider: Paul Mendez Other Providers: Amador Ghosh ; Eugene Mario
--- NOTE | 2022-04-04 13:19 | Orthopedic Consultation ---
Date of Consultation April 04, 2022 Assessment & Plan (1) Intractable low back pain: Patient was admitted and discharged prior to having the opportunity to examine and perform consultation. History of Present Illness Attending Physician: Bonnie Forman MD Allergies Allergy/AdvReac Type Severity Reaction Status Date / Time No Known Allergies Allergy Mild Verified 03/29/22 20:15 Home Medications Medication Instructions Recorded Confirmed Type furosemide 20 mg tablet 20 mg PO DAILY 07/02/18 03/29/22 History levothyroxine 88 mcg tablet 88 mcg PO DAILY 07/02/18 03/29/22 History metoprolol succinate 25 mg 25 mg PO DAILY 07/02/18 03/29/22 History tablet,extended release 24 hr omeprazole 20 mg capsule,delayed 20 mg PO DAILY PRN Acid Reflux 07/02/18 03/29/22 History release Aspirin Low-Strength 81 mg PO DAILY 03/29/22 03/29/22 History atorvastatin 10 mg tablet 10 mg PO DAILY 03/29/22 03/29/22 History lisinopril 20 mg tablet 20 mg PO DAILY 03/29/22 03/29/22 History metformin 500 mg tablet,extended 500 mg PO DAILY 03/29/22 03/29/22 History release 24 hr omega 7-vwz-peo-fish oil 1,000 mg 1 cap PO DAILY 03/29/22 03/29/22 History (120 mg-180 mg) capsule (Fish Oil) vitamin E 268 mg (400 unit) capsule 268 mg PO DAILY 03/29/22 03/29/22 History Vitamin D3 1,000 units PO DAILY 03/30/22 03/30/22 History diclofenac sodium 1 % topical gel 4 g EXT Q6H #100 grams 03/31/22 Rx (Voltaren Arthritis Pain) Patient History Medical History (Updated 03/30/22 @ 01:44 by Yoni Delgadillo MD) Diverticulitis Social History (Updated 07/02/18 @ 07:33 by Shanice Ferreira) Smoking Status: Never smoker Hx Alcohol Use: No Hx Substance Use: No Preferred Language: Lithuanian Communication Ability: Effective Laminator Hand Required: No Beliefs That Will Affect Care: None marital status: Current Living Situation: Spouse Other Information That Helps Us Care for You: No Feels Safe at Home: Yes Safety Concerns: Feels Safe At This Time Assistive Devices: Cane and Glasses
== END 2022-03-31 13:50 | disposition home or self-care (01) | DRG 552 ==
LOC: ED 17:51 → 3W 23:59